=== PATIENT | male | born 1960 | race African-American/Black ===

== ENCOUNTER 2017-04-08 10:51 | Emergency (ER) | payer OTHER ==
[2017-04-08 10:59] VITALS: TEMP 98; BMI 25.0
--- NOTE | 2017-04-08 11:04 | PDOC ---
History of Present Illness - General History Source: Patient Exam Limitations: No Limitations - History of Present Illness Initial Comments: CHIEF COMPLAINT: 56 y/o male with PMH BPH c/o intermittent abdominal discomfort x 1 year. HISTORY OF PRESENT ILLNESS: The patient states he has some abdominal discomfort after he eats on occasion in his left lower abdomen. He states when that happens he normally has to have 4-5 bowel movements in that same day. He states this has been happening for over 1 year but he has not mentioned it to his doctor. He had a colonoscopy and endoscopy about 3 years ago and both were normal. He denies f/c, n/v/d, CP, SOB, back pain, hematuria, dysuria, melena, bloody stools, change in stool color/shape/size, unintentional weight loss, fatigue. He has asked his doctor for a repeat colonoscopy and endoscopy but she states he doesn't need a repeat yet and thinks he has anxiety. Vital signs on arrival are notable for HR of 55. REVIEW OF SYSTEMS: GENERAL/CONSTITUTIONAL: No fever/chills. No weakness. No weight change. HEAD, EYES, EARS, NOSE AND THROAT: No change in vision. No ear pain or discharge. No sore throat. CARDIOVASCULAR: No chest pain or shortness of breath. RESPIRATORY: No cough, wheezing, or hemoptysis. GASTROINTESTINAL: +abdominal pain intermittently (none currently). No nausea, vomiting, diarrhea, constipation, change in stool. GENITOURINARY: No dysuria, frequency, or change in urination. MUSCULOSKELETAL: No joint or muscle swelling or pain. No neck or back pain. SKIN: No rash or easy bruising. NEUROLOGIC: No headache, vertigo, loss of consciousness, or loss of sensation. PHYSICAL EXAM: GENERAL: The patient is awake, alert, and fully oriented, in no acute distress. HEAD: Normal with no signs of trauma. ENT: Pupils equal, round and reactive to light, extraocular movements intact, sclera anicteric, conjunctiva clear. Neck supple. LUNGS: Clear to auscultation bilaterally. Normal excursion. No respiratory distress or use of accessory muscles. CV: RRR, S1/S2, no MRG. Cap refill < 2 sec. ABDOMEN: Soft, non-distended, non-tender even to deep palpation, no hepatomegaly or splenomegaly, no masses. Normal BS x 4. EXTREMITIES: Normal range of motion, no edema. NEUROLOGICAL: Normal speech, normal gait. CN II-XII grossly intact. PSYCH: Normal mood, normal affect. SKIN: Warm, dry, normal turgor, no rashes or lesions noted. <Salome Kelsey - Last Filed: 04/08/17 13:13> <Luis Burgos - Last Filed: 04/10/17 07:56> - General Chief Complaint: Pain Stated Complaint: ABD PAIN Time Seen by Provider: 04/08/17 11:02 Past History - Past Medical History Disorders: Yes (ENLARGED PROSTATE) Psychiatric Problems: Yes (DEPRESSION) - Surgical History Abdominal Surgery: Yes (HERNIA) - Psycho/Social/Smoking Cessation Hx Anxiety: No Suicidal Ideation: No Smoking History: Former smoker Have you smoked in the past 12 months: No If you are a former smoker, when did you quit?: 9 YRS Information on smoking cessation initiated: No Hx Alcohol Use: No Drug/Substance Use Hx: No Substance Use Type: None <Salome Kelsey - Last Filed: 04/08/17 13:13> <Luis Burgos - Last Filed: 04/10/17 07:56> - Past Medical History Allergies/Adverse Reactions: Allergies Allergy/AdvReac Type Severity Reaction Status Date / Time No Known Allergies Allergy Verified 04/08/17 10:58 Home Medications: Ambulatory Orders Finasteride [Proscar] 5 mg PO DAILY 04/08/17 Oxycodone HCl/Acetaminophen [Percocet 5-325 mg Tablet] 1 - 2 tab PO Q6H Tamsulosin HCl [Flomax] 0.4 mg PO DAILY 04/08/17 *Physical Exam - Vital Signs Last Vital Signs Temp Pulse Resp BP Pulse Ox 98.0 F 55 L 18 140/72 98 04/08/17 10:54 04/08/17 10:54 04/08/17 10:54 04/08/17 10:54 04/08/17 10:54 <Salome Kelsey - Last Filed: 04/08/17 13:13> - Vital Signs Last Vital Signs Temp Pulse Resp BP Pulse Ox 98.0 F 62 16 138/68 99 04/08/17 10:54 04/08/17 13:21 04/08/17 13:21 04/08/17 13:21 04/08/17 13:21 <Luis Burgos - Last Filed: 04/10/17 07:56> ED Treatment Course - LABORATORY CBC & Chemistry Diagram: 04/08/17 12:04 04/08/17 12:04 <Salome Kelsey - Last Filed: 04/08/17 13:13> - LABORATORY CBC & Chemistry Diagram: 04/08/17 12:04 04/08/17 12:04 - ADDITIONAL ORDERS Additional order review: 04/08/17 12:04 RBC 5.29 MCV 77.8 L MCHC 31.8 L RDW 14.7 MPV 8.6 Neutrophils % 39.1 L D Lymphocytes % 46.7 H D Monocytes % 10.3 H Eosinophils % 2.5 D Basophils % 1.4 <Luis Burgos - Last Filed: 04/10/17 07:56> Medical Decision Making - Medical Decision Making A/P: 56 y/o afebrile male with over 1 year of intermittent left lower quadrant abdominal pain after he eats with 4-5 bowel movements on those days. The patient denies all other complaints. Plan is as follows: 1. Labs Labs ok The patient was given his results. Will provide him with a GI referral. Encouraged him to f/u with Dr. Aguilar within 1 week and return to the ER with any worsening or concerning symptoms. The patient verbalized understanding of all instructions, has no further questions and is awaiting discharge. <Salome Kelsey - Last Filed: 04/08/17 13:13> - Medical Decision Making 04/10/17 07:56 The patient was seen and evaluated in conjunction with LIAN Kelsey under my direct supervision, ancillary studies were reviewed. I agree with the plan as outlined by LIAN Kelsey . <Luis Burgos - Last Filed: 04/10/17 07:56> *DC/Admit/Observation/Transfer <Salome Kelsey - Last Filed: 04/08/17 13:13> <Luis Burgos - Last Filed: 04/10/17 07:56> Diagnosis at time of Disposition: Abdominal pain Qualifiers: Abdominal location: left lower quadrant Qualified Code(s): R10.32 - Left lower quadrant pain - Discharge Dispostion Disposition: HOME Condition at time of disposition: Good - Referrals Referrals: Gianni Aguilar DO [Staff Physician] - Call tomorrow - Patient Instructions Printed Discharge Instructions: DI for Abdominal Pain-Adult Additional Instructions: Discharge Instructions: -Your labs were all normal -Please call Dr. Aguilar today to schedule follow up appointment -Return to the ER with any worsening or concerning symptoms
[2017-04-08 12:08] LABS: BASOPHIL 1.4 % (0-2.0); EOSINOPHIL 2.5 % (0-4.5); MCH 24.7 pg (25.7-33.7); MCHC 31.8 g/dl (32.0-35.9); MEAN CELL VOLUME 77.8 fl (80-96); MEAN PLT VOLUME 8.6 fl (7.5-11.1); NEUTROPHILS 39.1 % (42.8-82.8); PLATELET COUNT 176 K/MM3 (134-434); RDW 14.7 % (11.9-15.9)
[2017-04-08 12:42] LABS: ALBUMIN 3.7 g/dl (3.4-5.0); ANION GAP 4 (8-16); BILIRUBIN,TOTAL 0.9 mg/dL (0.2-1.0); CALCIUM 8.7 mg/dL (8.5-10.1); CO2 31 mmol/L (21-32); CREATININE 0.9 mg/dL (0.7-1.3); GLUCOSE,RANDOM 84 mg/dL (74-106); SGPT/ALT 37 U/L (12-78); TOT PROT 6.2 g/dl (6.4-8.2)
[2017-04-08 12:43] LABS: ALK PHOS 84 U/L (45-117); SGOT/AST 33 U/L (15-37)
[2017-04-08 13:22] VITALS: BP 138/68; PULSE 62
== END 2017-04-08 13:25 | disposition home or self-care (01) ==
LOC: JER 10:51
DX: R10.32 Left lower quadrant pain (principal); N40.0 Benign prostatic hyperplasia without lower urinary tract symptoms; F32.9 Major depressive disorder, single episode, unspecified; Z87.891 Personal history of nicotine dependence
CPT/HCPCS: 36415; 80053; 85025; 99285-25

== ENCOUNTER 2018-07-22 18:16 | Emergency (ER) | payer OTHER ==
--- NOTE | 2018-07-22 18:32 | PDOC ---
Rapid Medical Evaluation Chief Complaint: Penile Drainage Time Seen by Provider: 07/22/18 18:31 Medical Evaluation: Allergies Allergy/AdvReac Type Severity Reaction Status Date / Time No Known Allergies Allergy Verified 04/08/17 10:58 07/22/18 18:31 I have performed a brief in person evaluation of this patient. The patient presents with a CC of: penile drainage Pt is a 57 YO male who noticed penile drainage x 1 day. Pt has a hx of STDS. PE: Skin: clear Lungs: Clear Heart: RRR MS: Moves all extremities without difficulty. Psych: Age appropriate. The patient will proceed to the ED for further evaluation. Discharge Disposition - Diagnosis STD (male) - Referrals - Patient Instructions - Post Discharge Activity
[2018-07-22 18:36] VITALS: BP 133/79; PULSE 85; TEMP 98.5; BMI 25.0
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
[2018-07-22] MEDS ORDERED: AZITHROMYCIN 500 MG TABLET PO ONE (20:59)
[2018-07-22] MEDS ORDERED: AZITHROMYCIN 250 MG TABLET PO ONE (21:10)
[2018-07-22 21:15] LABS: URINE APPEARANCE SLCLOUDY; URINE BILIRUBIN NEGATIVE (<2.0 mg/dL); URINE COLOR YELLOW; URINE GLUCOSE (UA) NEGATIVE (NEGATIVE); URINE KETONE TRACE (NEGATIVE); URINE LEUK ESTERASE TRACE (NEGATIVE); URINE NITRITE NEGATIVE (NEGATIVE); URINE PROTEIN NEGATIVE (NEGATIVE); URINE UROBILINOGEN NEGATIVE mg/dL (0.2-1.0)
[2018-07-22 21:18] LABS: URINE MUCUS RARE
[2018-07-22] MEDS ORDERED: AZITHROMYCIN 250 MG TABLET ONE (21:19)
== END 2018-07-22 21:32 | disposition home or self-care (01) ==
LOC: JERFT 18:16
DX: A63.8 Other specified predominantly sexually transmitted diseases (principal); N40.0 Benign prostatic hyperplasia without lower urinary tract symptoms
CPT/HCPCS: 36415; 81003; 81015; 87081; 87086; 87491; 87591; 99281-25

== ENCOUNTER 2018-08-22 17:21 | Emergency (ER) | payer OTHER ==
[2018-08-22 17:32] VITALS: BMI 26.6
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
[2018-08-22] MEDS ORDERED: SODIUM CHLORIDE 1,000 ML IV STA (17:47)
[2018-08-22 18:21] LABS: CARBOXYHEMOGLOBIN 0.7 gm% (0.5-2.0)
[2018-08-22 18:23] LABS: ARTERIAL BLOOD GAS BASE EXCESS 1.4 meq/l (-2-2); ARTERIAL BLOOD GAS PCO2 41.6 mmHg (35-45); ARTERIAL BLOOD GAS pH 7.41 (7.35-7.45)
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
[2018-08-22 18:24] LABS: ALLENS TEST POSITIVE
[2018-08-22 18:25] LABS: ARTERIAL BLD GAS O2 SATURATION 99.9 % (90-98.9)
[2018-08-22 18:34] LABS: BASO % 1.3 % (0-2.0); EOS % 2.1 % (0-4.5); HEMATOCRIT 39.1 % (35.4-49); HEMOGLOBIN 13.2 GM/dL (11.7-16.9); LYMPH % 37.9 % (8-40); MCH 26.1 pg (25.7-33.7); MCHC 33.7 g/dl (32.0-35.9); MEAN CELL VOLUME 77.6 fl (80-96); MEAN PLT VOLUME 8.6 fl (7.5-11.1); MONO % 10.3 % (3.8-10.2); NEUT % 48.4 % (42.8-82.8); PLATELET COUNT 196 K/MM3 (134-434); RBC 5.04 M/mm3 (4.00-5.60); RDW 14.5 % (11.9-15.9); WHITE BLOOD COUNT 4.4 K/mm3 (4.0-10.0)
[2018-08-22 19:10] LABS: ALBUMIN 3.8 g/dl (3.4-5.0); ALK PHOS 109 U/L (45-117); BILIRUBIN,TOTAL 0.4 mg/dL (0.2-1); BLOOD UREA NITROGEN 16 mg/dL (7-18); CALCIUM 8.1 mg/dL (8.5-10.1); CHLORIDE 106 mmol/L (98-107); CO2 28 mmol/L (21-32); CREATININE 0.9 mg/dL (0.55-1.3); GLUCOSE,RANDOM 91 mg/dL (74-106); SGPT/ALT 25 U/L (13-61); SODIUM 141 mmol/L (136-145); TOT PROT 6.3 g/dl (6.4-8.2)
[2018-08-22 19:11] LABS: ANION GAP 8 MMOL/L (8-16); SGOT/AST 30 U/L (15-37)
[2018-08-22 19:27] VITALS: BP 124/64; PULSE 60; TEMP 97.9
--- NOTE | 2018-08-23 11:11 | EKG ---
Test Reason : Blood Pressure : / mmHG Vent. Rate : 056 BPM Atrial Rate : 056 BPM P-R Int : 156 ms QRS Dur : 084 ms QT Int : 416 ms P-R-T Axes : 071 052 039 degrees QTc Int : 401 ms SINUS BRADYCARDIA OTHERWISE NORMAL ECG WHEN COMPARED WITH ECG OF 04-JUL-2015 12:47, NO SIGNIFICANT CHANGE WAS FOUND Confirmed by MICK DIAZ MD ([id number]) on 08/23/2018 11:11:16 AM Referred By: Confirmed By:MICK DIAZ MD
== END 2018-08-22 19:34 | disposition home or self-care (01) ==
LOC: JER 17:21
PROC: 3E0337Z Introduction of Electrolytic and Water Balance Substance into Peripheral Vein, Percutaneous Approach (ICD-10-PCS; principal; 2018-08-22)
DX: Z77.018 Contact with and (suspected) exposure to other hazardous metals (principal); N40.0 Benign prostatic hyperplasia without lower urinary tract symptoms; F32.9 Major depressive disorder, single episode, unspecified; R07.9 Chest pain, unspecified; Z77.098 Contact with and (suspected) exposure to other hazardous, chiefly nonmedicinal, chemicals
CPT/HCPCS: 36415; 36600; 80053; 82375; 82550; 82553; 82803; 83050; 84484; 85025; 93005; 93010; 96360; 99283-25; J7030

== ENCOUNTER 2018-09-10 14:52 | Emergency (ER) | payer OTHER ==
[2018-09-10 15:01] VITALS: BP 117/65; PULSE 80; TEMP 97.6; BMI 24.1
--- NOTE | 2018-09-10 15:05 | PDOC ---
Rapid Medical Evaluation Time Seen by Provider: 09/10/18 15:01 Medical Evaluation: Allergies Allergy/AdvReac Type Severity Reaction Status Date / Time No Known Allergies Allergy Verified 08/22/18 17:31 Vital Signs Temp Pulse Resp BP Pulse Ox 97.6 F 80 20 117/65 98 09/10/18 14:57 09/10/18 14:57 09/10/18 14:57 09/10/18 14:57 09/10/18 14:57 09/10/18 15:01 The patient presents with a chief complaint of: occipital headache x 2 weeks, no other complaints, no meds taken, states was exposed to carbon monoxide and was seen here 2weeks ago, I have performed a brief in-person evaluation of this patient: VSS, no acute findings Pertinent physical exam findings: pt smiling, very active, ambulatory, in no respiratory distress, previous chart reviewed ( labs/ABG wnl) I have ordered the following: none The patient will proceed to the ED for further evaluation. Discharge Disposition - Diagnosis Headache Qualifiers: Headache type: unspecified Headache chronicity pattern: acute headache Intractability: not intractable Qualified Code(s): R51 - Headache - Discharge Dispostion Disposition: HOME Condition at time of disposition: Stable - Referrals Referrals: Sabi Calderon [Primary Care Provider] - - Patient Instructions Printed Discharge Instructions: DI for Headache Additional Instructions: drink lots of fluids rest, avoid any heavy lifting or strenuous activity until pain resolves May continue using Tylenol for pain relief Attempt to make appointment with psychiatrist next week for reevaluation and potential change in medications - Post Discharge Activity
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
== END 2018-09-10 16:41 | disposition home or self-care (01) ==
LOC: JERFT 14:52
DX: R51 Headache (principal)
CPT/HCPCS: 99281-25

== ENCOUNTER 2018-10-18 09:16 | Emergency (ER) | payer OTHER ==
[2018-10-18 09:37] VITALS: BP 118/63; PULSE 53; TEMP 97.5; BMI 25.8
--- NOTE | 2018-10-18 10:06 | PDOC ---
History of Present Illness - General Chief Complaint: Pain Stated Complaint: PAIN Time Seen by Provider: 10/18/18 09:46 History Source: Patient Exam Limitations: No Limitations - History of Present Illness Initial Comments: 10/18/18 10:26 58-year-old male presents to ED with complaints of "flash like" pain throughout body for the past 2 weeks associated with a mild generalized throbbing headache for the past week. Patient also complaining of burning and tingling with urination but denies any penile discharge abdominal pain or dizziness. Patient does state has abdominal bloating after meals intermittently and has not seen his doctor for the above. Patient denies head injury, visual changes, fever. Timing/Duration: other Severity: moderate Associated Symptoms: reports: other Past History - Travel Traveled outside of the country in the last 30 days: No Close contact w/someone who was outside of country & ill: No - Past Medical History Allergies/Adverse Reactions: Allergies Allergy/AdvReac Type Severity Reaction Status Date / Time No Known Allergies Allergy Verified 10/18/18 09:32 Home Medications: Ambulatory Orders Finasteride [Proscar] 5 mg PO DAILY 04/08/17 Tamsulosin HCl [Flomax] 0.4 mg PO DAILY 04/08/17 Risperidone [Risperdal] 1 mg PO BID 09/10/18 COPD: No CHF: No DVT: No Disorders: Yes (ENLARGED PROSTATE) Psychiatric Problems: Yes (DEPRESSION) - Surgical History Abdominal Surgery: Yes (HERNIA) - Immunization History Immunization Up to Date: Yes - Suicide/Smoking/Psychosocial Hx Smoking History: Unknown if ever smoked Have you smoked in the past 12 months: No If you are a former smoker, when did you quit?: 9 YRS Hx Alcohol Use: No Drug/Substance Use Hx: No Substance Use Type: None Patient Lives Alone: Yes Lives with/in: lives alone Review of Systems - Review of Systems Able to Perform ROS?: No Constitutional: No: Symptoms Reported HEENTM: No: Symptoms Reported Respiratory: No: Symptoms reported Cardiac (ROS): No: Symptoms Reported ABD/GI: Yes: Other : Yes: Burning. No: Dysuria, Discharge Musculoskeletal: No: Symptoms Reported Integumentary: No: Symptoms Reported Neurological: No: Symptoms reported Endocrine: No: Symptoms Reported Hematologic/Lymphatic: No: Symptoms Reported *Physical Exam - Vital Signs Last Vital Signs Temp Pulse Resp BP Pulse Ox 97.5 F L 53 L 18 118/63 100 10/18/18 09:36 10/18/18 09:36 10/18/18 09:36 10/18/18 09:36 10/18/18 09:36 - Physical Exam General Appearance: Yes: Nourished, Appropriately Dressed. No: Apparent Distress HEENT: positive: EOMI, JALEN, TMs Normal, Pharynx Normal. negative: Pale Conjunctivae Neck: positive: Supple Respiratory/Chest: positive: Lungs Clear, Normal Breath Sounds. negative: Respiratory Distress, Accessory Muscle Use Cardiovascular: positive: Regular Rhythm, Bradycardia. negative: Murmur Gastrointestinal/Abdominal: positive: Soft. negative: Tenderness Integumentary: positive: Normal Color, Warm, Moist Neurologic: positive: Motor Strength 5/5 (ambulatory) Moderate Sedation - Procedure Monitoring Vital Signs: Procedure Monitoring Vital Signs Temperature 97.5 F L 10/18/18 09:36 Pulse Rate 53 L 10/18/18 09:36 Respiratory Rate 18 10/18/18 09:36 Blood Pressure 118/63 10/18/18 09:36 O2 Sat by Pulse Oximetry (%) 100 10/18/18 09:36 Heart Score/ECG Review - ECG Intrepretation Rhythm: Regular Rhythm (lvh, rate 51) ED Treatment Course - LABORATORY CBC & Chemistry Diagram: 10/18/18 09:56 10/18/18 09:56 Medical Decision Making - Medical Decision Making 10/18/18 10:32 Chief complaint :Tingling sensation throughout body mild generalized headache and urinary burning Exam: No acute findings no penile discharge Plan: CBC, comp, EKG urinalysis urine culture and GC chlamydia 10/18/18 10:45 Laboratory Tests 10/18/18 10/18/18 10/18/18 09:56 10:00 10:10 WBC 3.5 L Hgb 14.2 Hct 42.6 MCV 78.3 L Absolute Neuts (auto) 1.7 Ur Specific [place] 1.019 Urine Nitrite Negative Ur Leukocyte Esterase Negative C. trachomatis (JEVON) Pending N. gonorrhoeae (JEVON) Pending 10/18/18 11:03 Laboratory Tests 10/18/18 10/18/18 10/18/18 09:56 09:56 09:56 WBC 3.5 L Hgb 14.2 Hct 42.6 Plt Count 214 Sodium 140 Potassium 4.8 Chloride 107 Carbon Dioxide 29 Anion Gap 4 L BUN 10 Creatinine 0.9 Creat Clearance w eGFR > 60 Random Glucose 95 Calcium 8.8 Magnesium 2.0 Total Bilirubin 0.6 AST 19 ALT 22 Alkaline Phosphatase 110 Total Protein 7.0 Albumin 4.2 Urine Protein Urine Glucose (UA) Urine Ketones Urine Blood Urine Nitrite Ur Leukocyte Esterase 10/18/18 10:00 WBC Hgb Hct Plt Count Sodium Potassium Chloride Carbon Dioxide Anion Gap BUN Creatinine Creat Clearance w eGFR Random Glucose Calcium Magnesium Total Bilirubin AST ALT Alkaline Phosphatase Total Protein Albumin Urine Protein Negative Urine Glucose (UA) Negative Urine Ketones Negative Urine Blood Negative Urine Nitrite Negative Ur Leukocyte Esterase Negative Pt to be discharged home and told to f/u with PMD *DC/Admit/Observation/Transfer Diagnosis at time of Disposition: Tingling, Head ache - Discharge Dispostion Disposition: HOME Condition at time of disposition: Good - Referrals - Patient Instructions Printed Discharge Instructions: Facts About Sexually Transmitted Infections, DI for Numbness/tingling Additional Instructions: Follow-up with your primary care doctor and we will call you if you results of your urine are positive. - Post Discharge Activity
[2018-10-18 10:29] LABS: URINE APPEARANCE CLEAR; URINE BILIRUBIN NEGATIVE (<2.0 mg/dL); URINE COLOR LTYELLOW; URINE GLUCOSE (UA) NEGATIVE (NEGATIVE); URINE KETONE NEGATIVE (NEGATIVE); URINE LEUK ESTERASE NEGATIVE (NEGATIVE); URINE NITRITE NEGATIVE (NEGATIVE); URINE PROTEIN NEGATIVE (NEGATIVE); URINE UROBILINOGEN NEGATIVE mg/dL (0.2-1.0)
[2018-10-18 10:31] LABS: EOS % 2.4 % (0-4.5); HEMATOCRIT 42.6 % (35.4-49); HEMOGLOBIN 14.2 GM/dL (11.7-16.9); LYMPH % 37.9 % (8-40); MCHC 33.2 g/dl (32.0-35.9); MEAN CELL VOLUME 78.3 fl (80-96); MEAN PLT VOLUME 8.4 fl (7.5-11.1); MONO % 9.7 % (3.8-10.2); PLATELET COUNT 214 K/MM3 (134-434); RBC 5.44 M/mm3 (4.00-5.60); RDW 14.7 % (11.9-15.9); WHITE BLOOD COUNT 3.5 K/mm3 (4.0-10.0)
[2018-10-18 10:55] LABS: ALBUMIN 4.2 g/dl (3.4-5.0); ALK PHOS 110 U/L (45-117); ANION GAP 4 MMOL/L (8-16); BILIRUBIN,TOTAL 0.6 mg/dL (0.2-1); BLOOD UREA NITROGEN 10 mg/dL (7-18); CALCIUM 8.8 mg/dL (8.5-10.1); CHLORIDE 107 mmol/L (98-107); CO2 29 mmol/L (21-32); CREATININE 0.9 mg/dL (0.55-1.3); GLUCOSE,RANDOM 95 mg/dL (74-106); POTASSIUM 4.8 mmol/L (3.5-5.1); SGOT/AST 19 U/L (15-37); SGPT/ALT 22 U/L (13-61); SODIUM 140 mmol/L (136-145)
--- NOTE | 2018-10-18 13:42 | EKG ---
Test Reason : Blood Pressure : / mmHG Vent. Rate : 051 BPM Atrial Rate : 051 BPM P-R Int : 134 ms QRS Dur : 086 ms QT Int : 406 ms P-R-T Axes : 030 053 046 degrees QTc Int : 374 ms SINUS BRADYCARDIA MINIMAL VOLTAGE CRITERIA FOR LVH, MAY BE NORMAL VARIANT BORDERLINE ECG WHEN COMPARED WITH ECG OF 22-AUG-2018 18:59, NO SIGNIFICANT CHANGE WAS FOUND Confirmed by EMILY BEVERLY, MICK ([id number]) on 10/18/2018 1:42:06 PM Referred By: Confirmed By:MICK DIAZ MD
== END 2018-10-18 11:07 | disposition home or self-care (01) ==
LOC: JER 09:16
DX: R51 Headache (principal); R20.2 Paresthesia of skin; N40.0 Benign prostatic hyperplasia without lower urinary tract symptoms; Z86.59 Personal history of other mental and behavioral disorders
CPT/HCPCS: 36415; 80053; 81003; 83735; 85025; 87086; 87491; 87591; 93005; 93010; 99282-25

== ENCOUNTER 2019-01-03 12:51 | Emergency (ER) | payer OTHER ==
[2019-01-03 13:02] VITALS: BP 132/69; PULSE 58; TEMP 98; BMI 23.6
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
[2019-01-03 15:14] LABS: URINE APPEARANCE CLEAR; URINE BILIRUBIN NEGATIVE (NEGATIVE); URINE COLOR YELLOW; URINE GLUCOSE (UA) NEGATIVE (NEGATIVE); URINE KETONE NEGATIVE (NEGATIVE); URINE LEUK ESTERASE NEGATIVE (NEGATIVE); URINE NITRITE NEGATIVE (NEGATIVE); URINE PROTEIN NEGATIVE (NEGATIVE); URINE UROBILINOGEN 0.2 mg/dL (0.2-1.0)
[2019-01-03] MEDS ORDERED: AZITHROMYCIN 250 MG TABLET PO ONE (16:06)
[2019-01-03] MEDS ORDERED: AZITHROMYCIN 250 MG TABLET ONE (16:08)
== END 2019-01-03 16:14 | disposition home or self-care (01) ==
LOC: JERFT 12:51
DX: A64 Unspecified sexually transmitted disease (principal)
CPT/HCPCS: 36415; 81003; 86593; 86803; 87086; 87389; 87491; 87591; 96372; 99281-25